=== PATIENT | female | born 1970 | race Caucasian/White ===

== ENCOUNTER 2019-04-26 01:22 | Emergency (ER) | payer BC ==
[~2019-04-26] VITALS: Ht 160 cm; Wt 55.0 kg
[~2019-04-26 01:22] MED LIST: IBUP-24 PO; KEP500T PO; LEVE10002 PO; MULT-1179 PO
[2019-04-26] MEDS ORDERED: propofol 10mg/ml 20ml vial IV ONE (03:40)
[2019-04-26 04:10] VITALS: BP 98/75
[2019-04-26] MEDS ORDERED: LIDOcaine 1% w/epiNEPHrine 1:200,000 30ml vial ONE (14:00)
== END 2019-04-26 05:34 | disposition home or self-care (01) ==
LOC: ER 01:22
DX: S43.004A Unspecified dislocation of right shoulder joint, initial encounter (principal); G40.909 Epilepsy, unspecified, not intractable, without status epilepticus; Z98.890 Other specified postprocedural states; Z79.899 Other long term (current) drug therapy; W01.0XXA Fall on same level from slipping, tripping and stumbling without subsequent striking against object, initial encounter; Y93.01 Activity, walking, marching and hiking; Y92.89 Other specified places as the place of occurrence of the external cause; Y99.9 Unspecified external cause status
CPT/HCPCS: 23650; 73020; 73030; 93005; 99152; 99285; J2704; 94760